=== PATIENT | male | born 1960 | race Caucasian/White ===

== ENCOUNTER 2021-06-12 08:08 | Day surgery (SDC) | payer OTHER, SELFPAY ==
[2021-06-06 11:07] VITALS: BMI 40.8
--- NOTE | 2021-06-07 13:17 | MHC.SHP ---
Pre-Procedural Eval Section A Date of Service: 06/07/21 The patient is an INPATIENT: No Changes since office visit: No Cold of Flu in the past 2 weeks, No New Medical Problems, No Changes in Medication and No Patient answered all questions The History & Physical has been completed within 30 days and I have reviewed it.: Yes Section B Chief Complaint: cataract Allergies: Allergies Allergy/AdvReac Type Severity Reaction Status Date / Time No Known Allergies Allergy Verified 06/06/21 11:04 Plan Diagnosis/Plan: Unchanged I have reviewed the history and physical and performed a pertinent physical examination on my patient. No changes have occurred unless specified.
--- NOTE | 2021-06-09 09:53 | P.CONAN_ITS ---
Documented by User: Veronica Arcos NP 06/09/21 09:56 HPI - Anesthesia Eval Consult details Narrative: 60yo M for Left Cataract Extraction IOL Insertion PCP cleared No prev cataract on record [facility] Past Medical History Medical History (Updated 06/06/21 @ 11:04 by Kylee Palacio RN) Arthritis BPH (benign prostatic hyperplasia) CAD (coronary artery disease) COVID-19 vaccine series completed Elevated cholesterol HTN (hypertension) Hx of retinal detachment Myocardial infarction Sciatica Surgical History Surgical History (Updated 06/06/21 @ 11:04 by Kylee Palacio RN) H/O colonoscopy Hx of cholecystectomy Hx of eye surgery Hx of heart artery stent Social History Social History Are you a primary behavioral health care manager to a significant other at home: No Patient Tobacco Use Status: Former Tobacco user Quit Date: 1984 Tobacco use type: Cigarette Use of substances other than those prescribed or required for medical reasons: No Have you been hit, kicked, punched, or otherwise hurt by someone within the past year? If so, by whom?: No Are you DNR?: No Advance Directives: No Advance Directives Information Provided: Yes (informational brochure mailed) Advance Directives on File: No Recently lost weight without trying: No Eating poorly because of decreased appetite: No Nutrition Risks: No Nutritional Risk Poor oral hygiene: No Meds Allergies Allergy/AdvReac Type Severity Reaction Status Date / Time No Known Allergies Allergy Verified 06/06/21 11:04 Home Medications Medication Instructions Recorded Confirmed Last Taken Type aspirin 81 mg tablet,delayed 81 mg PO DAILY 06/06/21 06/06/21 Unknown History release atorvastatin 80 mg tablet 1 tab PO DAILY 06/06/21 06/06/21 Unknown History docusate sodium 100 mg capsule 1 cap PO DAILY 06/06/21 06/06/21 Unknown History fluticasone propionate 50 1 spray INTRANASAL DAILY PRN 06/06/21 06/06/21 Unknown History mcg/actuation nasal spray,suspension gabapentin 300 mg capsule 1 cap PO DAILY PRN 06/06/21 06/06/21 Unknown History lisinopril 20 mg tablet 1 tab PO DAILY 06/06/21 06/06/21 Unknown History metoprolol succinate 25 mg 1 tab PO DAILY 06/06/21 06/06/21 06/12/21 History tablet,extended release 24 hr nitroglycerin 0.4 mg sublingual 0.4 mg SUBLINGUAL Q5M PRN 06/06/21 06/06/21 Unknown History tablet (Nitrostat) tamsulosin 0.4 mg capsule 1 cap PO DAILY 06/06/21 06/06/21 06/12/21 History Exam Exam Date and Time: June 09, 2021 0953 Height,Weight and Vital Signs: Height 5 ft 2 in Weight 101.151 kg Pertinent Lab Results Pertinent Lab Results: CBC and BMP all WNL (done at outside facility) Narrative Narrative: EKG 06/06/21 NSR @ 77, LAD Assessment and Plan Assessment Anesthesia Assessment: Chart Reviewed Documented by User: Ronald Valdivia MD 06/12/21 10:21 [facility] Past Medical History Medical History (Updated 06/06/21 @ 11:04 by Kylee Palacio RN) Arthritis BPH (benign prostatic hyperplasia) CAD (coronary artery disease) COVID-19 vaccine series completed Elevated cholesterol HTN (hypertension) Hx of retinal detachment Myocardial infarction Sciatica Family History Family history of problems with anesthesia: No Surgical History Surgical History (Updated 06/06/21 @ 11:04 by Kylee Palacio RN) H/O colonoscopy Hx of cholecystectomy Hx of eye surgery Hx of heart artery stent History of Problems with Anesthesia: No Social History Social History Are you a primary behavioral health care manager to a significant other at home: No Patient Tobacco Use Status: Former Tobacco user Quit Date: 1984 Tobacco use type: Cigarette Use of substances other than those prescribed or required for medical reasons: No Have you been hit, kicked, punched, or otherwise hurt by someone within the past year? If so, by whom?: No Are you DNR?: No Advance Directives: No Advance Directives Information Provided: Yes (informational brochure mailed) Advance Directives on File: No Recently lost weight without trying: No Eating poorly because of decreased appetite: No Nutrition Risks: No Nutritional Risk Poor oral hygiene: No Meds Allergies Allergy/AdvReac Type Severity Reaction Status Date / Time No Known Allergies Allergy Verified 06/06/21 11:04 Home Medications Medication Instructions Recorded Confirmed Last Taken Type aspirin 81 mg tablet,delayed 81 mg PO DAILY 06/06/21 06/06/21 Unknown History release atorvastatin 80 mg tablet 1 tab PO DAILY 06/06/21 06/06/21 Unknown History docusate sodium 100 mg capsule 1 cap PO DAILY 06/06/21 06/06/21 Unknown History fluticasone propionate 50 1 spray INTRANASAL DAILY PRN 06/06/21 06/06/21 Unknown History mcg/actuation nasal spray,suspension gabapentin 300 mg capsule 1 cap PO DAILY PRN 06/06/21 06/06/21 Unknown History lisinopril 20 mg tablet 1 tab PO DAILY 06/06/21 06/06/21 Unknown History metoprolol succinate 25 mg 1 tab PO DAILY 06/06/21 06/06/21 06/12/21 History tablet,extended release 24 hr nitroglycerin 0.4 mg sublingual 0.4 mg SUBLINGUAL Q5M PRN 06/06/21 06/06/21 Unknown History tablet (Nitrostat) tamsulosin 0.4 mg capsule 1 cap PO DAILY 06/06/21 06/06/21 06/12/21 History Exam Airway Mallampati Class: III TM Dist: >3cm Neck ROM: Full Loose/Missing/Broken Teeth: No Heart: [id number] Lungs: cta b/l Assessment and Plan Assessment Anesthesia Assessment: Anesthesia Plan Discussed Final Anesthetic Review Family History of Problems with Anesthesia: No History of Problems with Anesthesia: No NPO: Yes ASA Class: III Final Preanesthetic Review: No Changes in Pt Med Stat, Meds/Allgs Chart Reviewed, Consent Obtained/Reviewed and Anes Risks/Benef Reviewed Patient Risk: Intermediate Procedure Risk: Low Assessment/Block/Sedation in SS: Assess/Block/Sedation-SS Anesthetic Plan Anesthetic Plan: MAC: and Agree w/ Assess. and Plan Disposition: Standard PACU
[2021-06-12 09:10] VITALS: BP 133/91; PULSE 75; RESP 16; TEMP 36.2; O2SAT 98
[2021-06-12] MEDS: Tetracaine HCl/PF 0.5% Oph Sol 4 ML DROPS 1 DROP EYE-LEFT (09:15)
[2021-06-12] MEDS: Tropicamide 1 % Ophth Sol 3 ML BTL 1 DROP EYE-LEFT ×3 (09:18→09:24)
[2021-06-12] MEDS: Phenylephrine HCL 2.5% Oph SoL 2 ML BOTTLE 1 DROP EYE-LEFT ×3 (09:20→09:26)
[2021-06-12] MEDS: Lactated Ringers 500 ML 50 ML IV (09:31)
--- NOTE | 2021-06-12 10:19 | HO.PNOPHT ---
Ophthalmology Procedure Procedure Date of Service: 06/12/21 Ophthalmology Viscoelastic: Healon Duet Dual Pack Pro Ophthalmology Lenses: TECAMY [id number] (22) Procedure Notes: PREOPERATIVE DIAGNOSIS: Decreased visual acuity left eye secondary to cataract POSTOPERATIVE DIAGNOSIS: Same PROCEDURE: Left cataract extraction with intraocular lens insertion SURGEON: Rashawn Marte M.D. ANESTHESIA: Topical/MAC ESTIMATED BLOOD LOSS: None COMPLICATIONS: None After obtaining informed consent, the patient was brought to the operation room suite and placed in the supine position. After adequate sedation per anesthesia, topical drops of Tetracaine were given to the left eye. The eye was then prepped and draped in the usual sterile fashion. The operating room microscope was then positioned over the operative eye and a lid speculum placed. A paracentesis was created. Viscoelastic was then instilled into the anterior chamber. A three plane incision was then created temporally, utilizing a 2.85 mm keratome. Capsulotomy forceps were then utilized to create a circular tear capsulotomy. Hydrodissection and hydrodelineation were carried out until adequate mobilization of the nucleus occurred. Phacoemulsification was then utilized to remove the dense central nucleus followed by removal of the cortical material utilizing the automated aspiration irrigation unit. Viscoat elastic was instilled into the posterior capsular bag followed by placement of a posterior chamber intraocular lens without difficulty. The residual Viscoat elastic was then removed utilizing the automated IA machine. The wound was check and found to be watertight. The patient tolerated the procedure well and the lid speculum was removed. Intracameral injection of Vigamox 0.1 mL followed by a subtenon injection of Kenalog-40 0.2 mL were administered. The patient will be seen in the a.m.
[2021-06-12 10:45] VITALS: BP 148/73; PULSE 78; RESP 16; TEMP 37.1; O2SAT 97
== END 2021-06-12 10:56 | disposition home or self-care (01) ==
PROVIDERS: PCP Internal Medicine; Visit Provider Ophthalmology
PROC: (CPT 66985; principal; 2021-06-12 10:30)
DX: H25.12 Age-related nuclear cataract, left eye (principal); H54.7 Unspecified visual loss; I25.10 Atherosclerotic heart disease of native coronary artery without angina pectoris; I25.2 Old myocardial infarction; Z98.61 Coronary angioplasty status; I10 Essential (primary) hypertension; Z79.899 Other long term (current) drug therapy; Z87.891 Personal history of nicotine dependence
CPT/HCPCS: 66984; J2250; J3010; J3300; V2632